=== PATIENT | male | born 1975 | race Caucasian/White ===

== ENCOUNTER 2017-12-10 23:48 | Emergency (ER) | payer SELFPAY ==
[~2017-12-10] VITALS: Ht 188 cm; Wt 100.0 kg
[2017-12-10 23:57] VITALS: BP 154/97; PULSE 74; RESP 13; TEMP 98.5; O2SAT 93
[2017-12-11] MEDS ORDERED: SODIUM CHLOR 0.9% 1000 ML INJ 1,000 ML IV ONE (00:18)
[2017-12-11] MEDS ORDERED: SODIUM CHLORIDE 0.9% FLUSH 10 ML FLUSH IVF PRN (00:30)
--- NOTE | 2017-12-11 00:48 | PD ---
HPI Chief Complaint: OD/ Ingestion Time Seen by Provider: 00:02 Travel History International Travel<30 days: No Contact w/Intl Traveler<30days: No Traveled to known affect area: No History of Present Illness HPI The patient is a 42 year old male who presents to the [facility] emergency department with a history of being found unresponsive by fire rescue on their arrival. The patient was dusky in coloration with O2 saturations reportedly in the 40s with agonal respiratory effort. The patient was noted to have pinpoint pupils. The patient was given Narcan 2 mg IM and became more awake and alert. According to ambulance services, the patient then reported that he was injecting methamphetamine and accidentally instead injected heroin. The patient 's blood sugar was noted prior to arrival to be 129. The patient reports a prior history of methamphetamine use. He denies regularly using any other drugs. The patient in route to this facility had nausea and vomiting. The patient was given Zofran 4 mg IV. The patient reports that since arriving his nausea has improved and he is requesting a couple water. On review of systems otherwise, the patient denies having any known recent fevers, cough or congestion, neck pain, chest pain, shortness of breath, abdominal pain, vomiting , diarrhea, urinary symptoms, or neurologic symptoms. [facility] Past Medical History Narrative Medical The patient's past medical history is reportedly none. His only significant history of methamphetamine use Medical History: Denies Significant Hx Diminished Hearing: No ?: Not Past Surgical History Surgical History: No Previous Surgery Social History Alcohol Use: No Tobacco Use: Yes (1 pack per day) Substance Use: Yes (Methamphetamine) Allergies-Medications (Allergen,Severity, Reaction): Coded Allergies: No Known Allergies (Unverified , 12/10/17) Reported Meds & Prescriptions Reported Meds & Active Scripts Active No Active Prescriptions or Reported Medications Review of Systems Except as stated in HPI: all other systems reviewed are Neg General / Constitutional: No: Fever Eyes: No: Visual changes HENT: No: Headaches Cardiovascular: No: Chest Pain or Discomfort Respiratory: No: Shortness of Breath Gastrointestinal: No: Abdominal Pain Genitourinary: No: Dysuria Musculoskeletal: No: Pain Skin: No Rash Neurologic: Positive: Change in Mentation, No: Weakness Psychiatric: Positive: Substance Abuse, No: Depression Endocrine: No: Polydipsia Hematologic/Lymphatic: No: Easy Bruising Physical Exam Narrative General: The patient is a well-developed well-nourished male in no acute distress. Head and Neck exam: Head is normocephalic atraumatic. Eyes: EOMI, pupils are 2 mm and reactive to light. Nose: Midline septum with pink mucous membranes Mouth: Dentition unremarkable. Moist mucus membranes. Posterior oropharynx is not erythematous. No tonsillar hypertrophy. Uvula midline. Airway patent. Neck: No palpable lymphadenopathy. No nuchal rigidity. No thyromegaly. Cardiovascular: Regular rate and rhythm without murmurs, gallops, or rubs. Lungs: Clear to auscultation bilaterally. No wheezes, rhonchi, or rales. Abdomen: Soft, without tenderness to palpation in all 4 quadrants of the abdomen. No guarding, rebound, or rigidity. Normal bowel sounds are audible. Extremities: No clubbing, cyanosis, or edema. 2+ pulses in all 4 extremities. No calf tenderness on palpation. Back: No spinous process tenderness to palpation. No costovertebral angle tenderness to palpation. Neurologic Exam: Grossly nonfocal. Skin Exam: No rash noted. Intact skin that is warm and dry. The patient has numerous tattoos noted. Data Data Last Documented VS Vital Signs Date Time Temp Pulse Resp B/P (MAP) Pulse Ox O2 Delivery O2 Flow Rate FiO2 12/11/17 00:05 96 Nasal Cannula 2.00 12/10/17 23:57 98.5 74 13 154/97 (116) Orders Orders Electrocardiogram (12/11/17 00:18) Complete Blood Count With Diff (12/11/17:18) Comprehensive Metabolic Panel (12/11/17:18) Prothrombin Time / Inr (Pt) (12/11/17 00:18) Act Partial Throm Time (Ptt) (12/11/17 00:18) Urinalysis - C+S If Indicated (12/11/17:18) Chest, Single Ap (12/11/17:18) Iv Access Insert/Monitor (12/11/17 00:18) Ecg Monitoring (12/11/17:18) Oximetry (12/11/17 00:18) Sodium Chloride 0.9% Flush (Ns Flush) (12/11/17 00:30) Sodium Chlor 0.9% 1000 Ml Inj (Ns 1000 M (12/11/17 00:18) Drug Screen, Random Urine (12/11/17 00:18) Alcohol (Ethanol) (12/11/17 00:18) Salicylates (Aspirin) (12/11/17 00:18) Tylenol (Acetaminophen) (12/11/17 00:18) Labs Laboratory Tests Test 12/11/17 00:30 White Blood Count 6.5 TH/MM3 Red Blood Count 5.03 MIL/MM3 Hemoglobin 14.5 GM/DL Hematocrit 43.2 % Mean Corpuscular Volume 85.8 FL Mean Corpuscular Hemoglobin 28.7 PG Mean Corpuscular Hemoglobin Concent 33.5 % Red Cell Distribution Width 13.9 % Platelet Count 248 TH/MM3 Mean Platelet Volume 8.5 FL Neutrophils (%) (Auto) 69.4 % Lymphocytes (%) (Auto) 19.6 % Monocytes (%) (Auto) 6.9 % Eosinophils (%) (Auto) 3.3 % Basophils (%) (Auto) 0.8 % Neutrophils # (Auto) 4.5 TH/MM3 Lymphocytes # (Auto) 1.3 TH/MM3 Monocytes # (Auto) 0.4 TH/MM3 Eosinophils # (Auto) 0.2 TH/MM3 Basophils # (Auto) 0.1 TH/MM3 CBC Comment DIFF FINAL Differential Comment Prothrombin Time 10.2 SEC Prothromb Time International Ratio 1.0 RATIO Activated Partial Thromboplast Time 24.6 SEC Blood Urea Nitrogen 11 MG/DL Creatinine 0.97 MG/DL Random Glucose 130 MG/DL Total Protein 6.0 GM/DL Albumin 3.0 GM/DL Calcium Level 7.9 MG/DL Alkaline Phosphatase 173 U/L Aspartate Amino Transf (AST/SGOT) 289 U/L Alanine Aminotransferase (ALT/SGPT) 579 U/L Total Bilirubin 0.3 MG/DL Sodium Level 144 MEQ/L Potassium Level 3.7 MEQ/L Chloride Level 107 MEQ/L Carbon Dioxide Level 32.4 MEQ/L Anion Gap 5 MEQ/L Estimat Glomerular Filtration Rate 85 ML/MIN Salicylates Level LESS THAN 1.7 MG/DL Acetaminophen Level LESS THAN 2.0 MCG/ML Ethyl Alcohol Level LESS THAN 3 MG/DL MDM Medical Decision Making Medical Screen Exam Complete: Yes Emergency Medical Condition: Yes Medical Record Reviewed: Yes Differential Diagnosis Accidental overdose, versus intentional overdose Narrative Course During the course of the patient's emergency department visit, the patient's history, examination, and differential diagnosis were reviewed with the patient. The patient was placed on a cardiac monitor technician with oximetry and frequent blood pressure monitoring. The patient had IV access obtained and blood work sent for analysis. The patient had a EKG done on arrival that shows a sinus bradycardia heart rate of 53, QRS duration 95 ms, QTC [address] segment elevation is noted. The patient was initially provided normal saline 1 L IV fluid bolus. The patient was given Zofran 4 mg IV for nausea. The patient's laboratory studies were reviewed and remarkable for 12/11/17 00:30 Total Protein 6.0 L, Albumin 3.0 L, Calcium Level 7.9 L, Alkaline Phosphatase 173 H, Aspartate Amino Transf (AST/SGOT) 289 H, Alanine Aminotransferase (ALT/ SGPT) 579 H, Total Bilirubin 0.3, AST and ALT are elevated in a pattern suggestive of a viral hepatitis, PT 10.2, PTT 24.6, salicylate less than 1.7, acetaminophen less than 2, alcohol level less than 3. Radiology studies were reviewed and remarkable for Last Impressions Chest X-Ray 12/11/17 0018 Signed Impressions: Service Date/Time: Monday, December 11, 2017 00:39 - CONCLUSION: Normal examination. Macario Richard MD The patient will be observed in the emergency department for any further recurrence of respiratory depression or decreased level of consciousness as the Narcan begins to wear off. If the patient remains awake and alert. The patient will be discharged home. The patient is resting comfortably and feels better, is alert and in no distress. The patient's results and examination findings were discussed with the patient. The repeat examination is unremarkable and benign. The history, exam, diagnostic testing, and current condition do not suggest any significant pathology to warrant further testing, continued ED treatment, admission, or surgical evaluation at this point. The vital signs have been stable. The patient does not have uncontrollable pain, intractable vomiting, or other significant symptoms. The patient's condition is stable and appropriate for discharge. The patient will pursue further outpatient evaluation with a primary care physician or other designated or consulting physician as indicated in the discharge instructions. The patient expressed understanding and was agreeable with this plan. Diagnosis Primary Impression: Accidental overdose Qualified Codes: T50.901A - Poisoning by unspecified drugs, medicaments and biological substances, accidental (unintentional), initial encounter Referrals: [facility] 2 days Patient Instructions: General Instructions, Opioid Overdose (ED) Med/Other Pt SpecificInfo: Prescription(s) given Scripts Naloxone Nasal Haslet (Narcan Nasal Haslet) 4 Mg/Act Haslet 4 MG NASAL ONCE Y for OPIOID OVERDOSE, #1 SPRAY 0 Refills Contents of 1 nasal spray as a single dose; may repeat every 2 to 3 minutes in alternating nostrils until medical assistance becomes available. Prov: Kathryn Jarvis MD 12/11/17 Disposition: 01 DISCHARGE HOME Condition: Stable Kathryn Jarvis MD December 11, 2017 00:47
[2017-12-11 00:57] LABS: AUTOMATED NEUTROPHIL # 4.5 TH/MM3 (1.8-7.7); BASOPHIL # 0.1 TH/MM3 (0-0.2); BASOPHIL % 0.8 % (0.0-2.0); EOSINOPHIL # 0.2 TH/MM3 (0-0.4); EOSINOPHIL % 3.3 % (0.0-4.0); HEMATOCRIT 43.2 % (39.0-51.0); HEMOGLOBIN 14.5 GM/DL (13.0-17.0); LYMPH % 19.6 % (9.0-44.0); LYMPHOCYTE # 1.3 TH/MM3 (1.0-4.8); MEAN CELL VOLUME 85.8 FL (80.0-100.0); MEAN CORPUSCULAR HEMOGLOBIN 28.7 PG (27.0-34.0); MEAN CORPUSCULAR HGB CONC 33.5 % (32.0-36.0); MEAN PLATELET VOLUME 8.5 FL (7.0-11.0); MONO % 6.9 % (0.0-8.0); MONOCYTE # 0.4 TH/MM3 (0-0.9); NEUT % 69.4 % (16.0-70.0); PLATELET COUNT 248 TH/MM3 (150-450); RED BLOOD COUNT 5.03 MIL/MM3 (4.50-5.90); RED CELL DISTRIBUTION WIDTH 13.9 % (11.6-17.2); WHITE BLOOD COUNT 6.5 TH/MM3 (4.0-11.0)
--- NOTE | 2017-12-11 01:00 | RADRPT ---
EXAM DATE/TIME: 12/11/2017 00:39 [place] COMPARISON: No previous studies available for comparison. INDICATIONS : Short of breath. MEDICAL HISTORY : None. SURGICAL HISTORY : None. ENCOUNTER: Initial ACUITY: 1 day PAIN SCORE: Non-responsive. LOCATION: Bilateral chest FINDINGS: A single view of the chest demonstrates the lungs to be symmetrically aerated without evidence of mas s, infiltrate or effusion. The cardiomediastinal contours are unremarkable. Osseous structures are intact. CONCLUSION: Normal examination. Macario Richard MD on December 11, 2017 at 0:58 Board Certified Radiologist. This report was verified electronically.
[2017-12-11 01:03] LABS: PROTHROMBIN TIME - PATIENT 10.2 SEC (9.8-11.6)
[2017-12-11 01:05] LABS: ALT (GPT) 579 U/L (12-78); AST (GOT) 289 U/L (15-37); BICARBONATE 32.4 MEQ/L (21.0-32.0); BLOOD UREA NITROGEN 11 MG/DL (7-18); CALCIUM 7.9 MG/DL (8.5-10.1); CHLORIDE 107 MEQ/L (98-107); CREATININE 0.97 MG/DL (0.60-1.30); GLOMERULAR FILTRATION RATE 85 ML/MIN (>89); GLUCOSE,RANDOM 130 MG/DL (74-106); SODIUM (NA) 144 MEQ/L (136-145)
[2017-12-11 01:07] LABS: ACETAMINOPHEN LESS THAN 2.0 MCG/ML (10.0-30.0); ALKALINE PHOSPHATASE 173 U/L (45-117); TOTAL BILIRUBIN ADULT 0.3 MG/DL (0.2-1.0)
[2017-12-11] MEDS ORDERED: NALO1SPR NASAL (03:51)
[2017-12-11 08:07] VITALS: BP 134/78
--- NOTE | 2017-12-11 10:59 | EKG ---
Date Performed: 12/11/2017 Time Performed: 01:09:16 PTAGE: 42 years EKG: SINUS BRADYCARDIA POSSIBLE INFERIOR MYOCARDIAL INFARCTION BORDERLINE ECG INTERPRETATION BAS ED ON A DEFAULT AGE OF 41 YEARS NO PREVIOUS TRACING DOCTOR: Macario Lemus Interpretating Date/Time 12/11/2017 10:57:46
== END 2017-12-11 08:08 | disposition home or self-care (01) ==
LOC: NEPE 23:48
DX: T40.1X1A Poisoning by heroin, accidental (unintentional), initial encounter (principal); R00.1 Bradycardia, unspecified; R94.31 Abnormal electrocardiogram [ECG] [EKG]; F15.90 Other stimulant use, unspecified, uncomplicated; F17.210 Nicotine dependence, cigarettes, uncomplicated
CPT/HCPCS: 71045; 80053; 80307; 85025; 85610; 85730; 93005; 96360; 96361; 99285; J7030